=== PATIENT | male | born 1950 | race Caucasian/White ===

== ENCOUNTER 2021-10-24 10:27 | Day surgery (SDC) | payer OTHER ==
[2021-10-21 12:16] LABS: BASOPHILS # (AUTO) 0.1 K/uL (0.0-0.2); BASOPHILS % (AUTO) 0.7 % (0.0-2.0); EOSINOPHILS % (AUTO) 0.5 % (0.0-4.0); HEMATOCRIT 44.6 % (36-54); HEMOGLOBIN 15.2 g/dL (14.0-18.0); LYMPHOCYTES # (AUTO) 1.1 K/uL (1.0-5.5); LYMPHOCYTES % (AUTO) 14.1 % (20.5-51.5); MEAN CORPUSCULAR HEMOGLOBIN 32 pg (27-31); MEAN CORPUSCULAR HGB CONC 34 % (32-36); MEAN CORPUSCULAR VOLUME 94 fL (79.0-98.0); MONOCYTES # (AUTO) 0.7 K/uL (0.0-1.0); MONOCYTES % (AUTO) 10.1 % (1.7-9.3); NEUTROPHILS # (AUTO) 5.6 K/uL (1.8-7.7); NEUTROPHILS % (AUTO) 74.6 % (40.0-70.0); PLATELET COUNT (AUTO) 190 K/uL (130-430); RED BLOOD CELL COUNT(AUTO) 4.75 MIL/uL (4.2-6.2); RED CELL DISTRIBUTION WIDTH 13.6 % (9.0-15.0); WHITE BLOOD COUNT (AUTO) 7.4 K/uL (4.8-10.8)
[2021-10-21 13:21] LABS: ALANINE AMINOTRANSFERASE 23 U/L (12-78); ALBUMIN 3.6 g/dL (3.4-4.8); ANION GAP 6 (5-15); ASPARTATE AMINOTRANSFERASE 21 U/L (10-37); CALCIUM 8.9 mg/dL (8.4-11.0); CHLORIDE 106 mmol/L (98-107); CREATININE 1.06 mg/dL (0.55-1.30); GLUCOSE 98 mg/dL (70-99); POTASSIUM 4.9 mmol/L (3.5-5.1); SODIUM SERUM 140 mmol/L (136-145); TOTAL BILIRUBIN 0.6 mg/dL (0.0-1.0); UREA NITROGEN, BLOOD 15 mg/dL (8-21)
[~2021-10-24] VITALS: Ht 182.9 cm; Wt 77.1 kg
[2021-10-24] MEDS ORDERED: CEFAZOLIN SOD 1 GM in D5W 50 ML IV ONE (11:15)
[2021-10-24] MEDS ORDERED: SEVOFLURANE 15 MIN GAS INH ONE (12:45)
[2021-10-24] MEDS ORDERED: PROPOFOL 200MG/ 20ML VIAL (DIPRIVAN) IV ONE (12:45)
[2021-10-24] MEDS ORDERED: LR 1,000 ML IV.SOLN IV ONE (12:45)
[2021-10-24] MEDS ORDERED: NS IRRIG SOLN 1000 ML IR ONE (12:45)
[2021-10-24] MEDS ORDERED: ONDANSETRON HCL 4 MG/2 ML VIAL ONE (12:45)
[2021-10-24] MEDS ORDERED: SUCCINYLCHOLINE CHLORIDE 20 MG/ML(QUELICIN) ONE (12:45)
[2021-10-24] MEDS ORDERED: ROCURONIUM BROMIDE 10 MG/ML (ZEMURON) ONE (12:45)
[2021-10-24] MEDS ORDERED: SUGAMMADEX SODIUM 200 MG/2 ML VIAL IV ONE (12:45)
[2021-10-24] MEDS ORDERED: fentaNYL CITRATE/PF 100 MCG/2 ML AMP ONE (12:45)
[2021-10-24] MEDS ORDERED: HYDROmorphone 1 MG/ML INJ. CARTRIDGE IVP PRN (13:45)
[2021-10-24] MEDS ORDERED: KETOROLAC TROMETHAMINE 30 MG VIAL IVP PRN (13:45)
[2021-10-24] MEDS ORDERED: LR 1,000 ML IV SCH (13:45)
[2021-10-24] MEDS ORDERED: MEPERIDINE HCL/PF 25 MG/ML DISP.SYRIN IVP PRN (13:45)
[2021-10-24] MEDS ORDERED: ONDANSETRON HCL 4 MG/2 ML VIAL IVP PRN (13:45)
[2021-10-24] MEDS ORDERED: METOCLOPRAMIDE HCL 10 MG/2 ML VIAL IVP PRN (13:45)
[2021-10-24 16:02] VITALS: BP_SYST 143
== END 2021-10-24 15:40 | disposition home or self-care (01) ==
LOC: SMU 10:27 → SDS 10:27 → EDSEX 13:30 → SDS 15:40
PROVIDERS: ATTEND Surgery
DX: K40.90 Unilateral inguinal hernia, without obstruction or gangrene, not specified as recurrent (principal); J44.9 Chronic obstructive pulmonary disease, unspecified; Z79.899 Other long term (current) drug therapy; Z20.822 Contact with and (suspected) exposure to COVID-19
CPT/HCPCS: 80053; 85025; 36415 ×2; 93005; 49505; 87426; U0003; C1781; J3490; J0690; J2405; J2704; J0330; J3010; J7060; J7120